=== PATIENT | male | born 1985 | race Caucasian/White ===

== ENCOUNTER → 2016-06-25 | Outpatient (CLI) | payer OTHER ==
[2016-06-25 10:35] LABS: CHOLESTEROL LEVEL 140 MG/DL (<200); TRIGLYCERIDES LEVEL 96 MG/DL (<150)
[2016-06-25 12:54] LABS: CONTROL LINE INT CTR LINE PRESENT; HIV SCRN NEGATIVE (NEGATIVE); HIV SCRN1 NEGATIVE (NEGATIVE)
== END ==
LOC: M LAB 08:57
DX: Z00.00 Encounter for general adult medical examination without abnormal findings (principal); Z11.4 Encounter for screening for human immunodeficiency virus [HIV]; F41.9 Anxiety disorder, unspecified

== ENCOUNTER → 2016-07-02 | Outpatient (CLI) | payer OTHER ==
--- NOTE | 2016-07-02 17:07 | REP ---
ORBITS, TWO VIEWS: HISTORY: Foreign body. The sinuses are clear. There is no fracture, bone lesion or radiopaque foreign body. IMPRESSION: Normal study. Signed by Ron Logan MD 07/03/2016 08:43 A
--- NOTE | 2016-07-03 09:24 | REP ---
MRI LEFT SHOULDER WITHOUT CONTRAST: 07/02/2016 CLINICAL HISTORY: Left shoulder pain, limited range of motion. No known injury. Recurrent subluxations for years. COMPARISON: X-ray 06/24/2016. TECHNIQUE: Sagittal fat suppressed T2, axial T2 MEDIC and fat suppressed T2 sequences with coronal T1 and fat suppressed T2 sequences provided. FINDINGS: Coronal images show the AC joint without hypertrophic changes. I do not see significant spurring from the acromion peripherally. The supraspinatus tendon shows some minor bursal surface fraying and tendinopathy but no full-thickness tear, retraction of the tendon nor atrophy of its muscle belly. No definite impingement suggested. There is no glenohumeral joint effusion evident. I see no loose body. There is abnormal signal in the posterior labrum and some paralabral cysts inferiorly adjacent posterior labrum. The anterior labrum and superior labrum are grossly intact. The subscapularis tendon shows some thickening and tendinopathy/tendinosis without a definite tear. No muscle atrophy. The infraspinatus and teres minor muscles and tendons are intact. The coracoclavicular and coracohumeral ligaments are intact. The spinal glenoid notch is unremarkable. Only trace amount of fluid in the subcoracoid bursa noted. The bony coracoid intact. IMPRESSION: 1. Posterior labral degeneration and suspected tear with paralabral cysts along the posterior inferior aspect of the labrum. 2. No glenohumeral joint effusion or other definite labral injury suggested although in the absence of a joint effusion the study would be less sensitive. Infraspinatus and teres minor tendons and muscles are intact. 3. Minor tendinopathy and peritendinitis of the supraspinatus with bursal surface fraying. No tear or retraction of the tendon. Biceps tendon is seated in its groove and unremarkable. Subscapularis with some tendinopathy tendinosis. No tear. 4. No bone bruise or fracture. Spinal glenoid notch without mass or fluid collection adjacent. Signed by Alden Berg MD 07/03/2016 05:48 P
--- NOTE | 2016-07-03 09:44 | REP ---
MRI LEFT FEMUR WITHOUT CONTRAST: 07/02/2016. Clinical history: Left lower extremity pain. Evaluate for hamstring injury. Technique: Coronal T1 and T2 STIR images of the thighs and smaller field of view, axial and coronal T1 and fat suppressed T2 STIR sequences of the left thigh were obtained. Comparison: X-ray femur and hip 03/10/2016. Findings: The bilateral femoral shafts and hips show no marrow signal abnormality. There is no joint effusion. The musculature of the buttocks, intrinsic pelvis and thigh muscles were symmetric in signal and size. I see no evidence of hematoma, mass or edema. There is no periosteal reaction or fluid collection. Subcutaneous fat without soft tissue mass or focal lesion. Hamstring insertions on the inferior pubic rami appear symmetric on both sides with some minor increased T2 signal in a symmetric fashion. Visualized tendons about the hip were unremarkable. There was no inguinal mass or hernia. No pathologic sized adenopathy. The bladder showed no wall thickening or mass. Visualized structures in the pelvis seen only in part were unremarkable. The neurovascular bundle of the thigh was unremarkable. Impression: 1. Some minor increased signal bilaterally in a symmetric fashion at hamstring insertions but no muscle tear, hematoma, edema or abnormal fluid collection evident. 2. No periosteal reaction, bone bruise, fracture or other marrow signal abnormality in the femoral shaft and hip. No subcutaneous mass. Signed by Alden Berg MD 07/03/2016 05:48 P
== END ==
LOC: M RAD 16:05
DX: M25.512 Pain in left shoulder (principal)

== ENCOUNTER 2016-07-30 20:54 | Emergency (ER) | payer OTHER ==
[~2016-07-30] VITALS: Ht 170.2 cm; Wt 64.4 kg
[2016-07-30] MEDS ORDERED: SERT1TAB16 (21:07)
[2016-07-30] MEDS ORDERED: TRAZ50TA4 (21:07)
[2016-07-31] MEDS ORDERED: CYCLOBENZAPRINE 10 MG TAB PO ONE
[2016-07-31] MEDS ORDERED: NORCO 5/325MG TABLET (BULK FOR ED) PO ONE
[2016-07-31] MEDS ORDERED: KETOROLAC 60 MG/2 ML VIAL (J1885) IM ONE
[2016-07-31] MEDS ORDERED: NAPR500T PO (00:03)
[2016-07-31] MEDS ORDERED: CYCL5TA PO (00:03)
[2016-07-31 00:48] VITALS: BP 116/65
== END 2016-07-31 00:50 | disposition home or self-care (01) ==
LOC: M ED 21:55
DX: S16.1XXA Strain of muscle, fascia and tendon at neck level, initial encounter (principal); X50.0XXA Overexertion from strenuous movement or load, initial encounter; Y92.39 Other specified sports and athletic area as the place of occurrence of the external cause; Y93.B3 Activity, free weights; Y99.8 Other external cause status; Z88.5 Allergy status to narcotic agent; Z79.899 Other long term (current) drug therapy

== ENCOUNTER → 2016-09-05 | Outpatient (CLI) | payer OTHER ==
[~2016-09-05] MED LIST: CYCL5TA PO; NAPR500T PO; SERT1TAB16; TRAZ50TA4
--- NOTE | 2016-09-05 19:12 | REP ---
MR LUMBAR SPINE WITHOUT CONTRAST: HISTORY: Back and leg pain. A rudimentary disc is present at the S1-2 level. Decreased signal intensity on T2-weighted images is present in the L5-S1 intervertebral discs. The disc is decreased in height. These findings are consistent with disc degeneration. There is no disc bulge or herniation at the L1-2 and L2-3 levels. The nerves exit the neural foramina without compression. A diffuse disc bulge is present at the L3-4 level. There is minimal compression of the thecal sac. The L3 nerves exit the neural foramina without compression. A diffuse disc bulge is present at the L4-5 level. There is minimal compression of the thecal sac. There is hypertrophy of the posterior articulating facets. The L4 nerves exit the neural foramina without compression. A diffuse disc bulge and small disc protrusion central and eccentric to the right are present at the L5-S1 level. There is minimal compression of the thecal sac and right S1 nerve as it exits the thecal sac. The left S1 nerve is normal. There is hypertrophy of the posterior articulating facets. The L5 nerves exit the neural foramina without compression. The conus medullaris is normal in appearance terminating at the level of the T12-L1 intervertebral disc . Normal signal intensity is present in the lumbar vertebral bodies. IMPRESSION: 1. Diffuse disc bulges at the L3-4 and L4-5 levels with minimal thecal sac compression. 2. Diffuse disc bulge and small disc protrusion at the L5-S1 level with minimal compression of the thecal sac and right S1 nerve as it exits the thecal sac. Signed by Ron Logan MD 09/05/2016 07:18 P
== END ==
LOC: M RAD 17:46
PROVIDERS: ATTEND Family Medicine
DX: M79.605 Pain in left leg (principal)

== ENCOUNTER → 2016-10-17 | Outpatient (CLI) | payer OTHER ==
[~2016-10-17] MED LIST changes: +CHIL100S45 PO; -CYCL5TA PO; +CYCL5TAB PO; +IBUP-1022 PO; +LIDO2SO SSP; +MAGICMW MT; +PENI250REC PO; +PRED20TA PO; -SERT1TAB16; +SERT25TA88; +TRAM50TA2 PO; +TRAZ50TA11; +TRAZ50TA11 PO; -TRAZ50TA4; +XANA0.5T PO
--- NOTE | 2016-11-06 00:32 | ECWPNPC ---
PATIENT NAME: POLY MUÑIZ : 1985 GENDER: MALE VISIT DATE: 10/17/2016 DISCHARGE DATE: 10/17/16 1202 VISIT LOCKED DATE TIME: PHYSICIAN: ASHLEY CHANCE RESOURCE: ASHLEY CHANCE REASON FOR APPOINTMENT 1. BACK/LEG HISTORY OF PRESENT ILLNESS FALL RISK SCREENIN31 Y/O MALE REFERRED BY DR. 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 SCREENING :NO FALLS IN THE PAST YEAR PAIN SCREENING: PATIENT HAS A COMPLAINT OF ACUTE OR CHRONIC PAIN :YES CURRENT MEDICATIONS TAKING IBUPROFEN 600 MG TABLET 1 TABLET ORALLY THREE TIMES A DAY TAKING XANAX 0.5 MG TABLET 1 TABLET ORALLY NEEDED FOR ANXIETY, PANIC ATTACKS TAKING TRAZODONE HCL 50 MG TABLET 1 TABLET AT BEDTIME NEEDED ORALLY ONCE A DAY NOT-TAKING CLONIDINE HCL 0.1 MG TABLET 1 TABLET AT BEDTIME ORALLY ONCE A DAY NOT-TAKING TIZANIDINE HCL 2 MG TABLET 1 TABLET NEEDED ORALLY BEFORE BEDTIME NOT-TAKING LYRICA 50 MG CAPSULE 1 CAPSULE ORALLY TAKE DAILY FOR FIRST WEEK, THEN INCREASE TO TWICE A DAY FOR SECOND WEEK THEN INCREASE TO 3 TIMES A DAY NOT-TAKING HYDROXYZINE HCL 25 MG TABLET 1 TABLET NEEDED ORALLY NEEDED NOT-TAKING CAPSAICIN 0.025 % CREAM 1 APPLICATION TO AFFECTED AREA EXTERNALLY THREE TIMES A DAY NOT-TAKING SERTRALINE HCL 25 MG TABLET 1 TABLET ORALLY ONCE A DAY NOT-TAKING DAILY VITAMIN - TABLET 1 TABLET ORALLY ONCE A DAY MEDICATION LIST REVIEWED AND RECONCILED WITH THE PATIENT PAST MEDICAL HISTORY ANXIETY PANIC ATTACKS ALLERGIES DILAUDID: HIVES: ALLERGY SURGICAL HISTORY APPENDECTOMY GI OBSTRUCTION FAMILY HISTORY FATHER: UNKNOWN MOTHER: ALIVE 50 YRS SIBLINGS: ALIVE DAUGHTER(S): ALIVE PATERNAL GRAND FATHER: UNKNOWN PATERNAL GRAND MOTHER: MATERNAL GRAND FATHER: UNKNOWN MATERNAL GRAND MOTHER: UNKNOWN 1 BROTHER(S) , 1 SISTER(S) - HEALTHY. 1DAUGHTER(S) - HEALTHY. SOCIAL HISTORY GENERAL: TOBACCO USE ARE YOU A:CURRENT SMOKER HOW MANY CIGARETTES A DAY DO YOU SMOKE?6-10 HOW SOON AFTER YOU WAKE UP DO YOU SMOKE YOUR FIRST CIGARETTE?6-30 MIN HOW OFTEN DO YOU SMOKE CIGARETTES?EVERY DAY PATIENT COUNSELED ON THE DANGERS OF TOBACCO USE AND URGED TO QUIT:09/08/2016 ARE YOU INTERESTED IN QUITTING?NOT READY TO QUIT COUNSELED THE PATIENT ON SMOKING EFFECTS, EDUCATION [id number]/05/2017 ALCOHOL SCREENING DID YOU HAVE A DRINK CONTAINING ALCOHOL IN THE PAST YEAR?NO POINTS0 INTERPRETATIONNEGATIVE RECREATIONAL DRUG USE DRUG USE?NO CAFFEINE CAFFEINE USE?YES SEXUAL HX HAD SEX IN THE LAST 12 MONTHS (VAGINAL, ORAL, OR ANAL)?YES WITHWOMEN ONLY HIV / HEP-C SCREENING HIV TEST OFFERED TO PATIENT:YES DATE OFFERED:06/24/2016 TEST ACCEPTED:YES 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 EXERCISE: NO REGULAR EXERCISE. MARITAL STATUS: SINGLE. OTHERS AT HOME: ROOMMATE. PETS: DOG. [place] NO PENTECOSTAL BELIEFS THAT WOULD IMPACT HEALTH CARE. LANGUAGE [place]. 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 LEARNING BARRIERS / SPECIAL NEEDS CHANGE FROM LAST VISIT?NO BARRIERS TO LEARNING?NO HEARING IMPAIRED?NO VISION IMPAIRED?YES READING :CORRECTIVE LENSES COGNITIVELY IMPAIRED?NO READINESS TO LEARN?YES LEARNING PREFERENCES?NO LEARNING CAPABILITIES PRESENT?YES EMOTIONAL BARRIERS?NO SPECIAL DEVICES?NO CUBE MACHINE TENDER NEEDED?NO ADVANCE DIRECTIVES HEALTH CARE PROXY?NO WOULD YOU LIKE MORE INFORMATION?NO DO YOU HAVE A DNR?NO WOULD YOU LIKE MORE INFORMATION?NO LIVING WILL?NO WOULD YOU LIKE MORE INFORMATION?NO POWER OF SUPERVISOR KEYMODULE ASSEMBLY?NO WOULD YOU LIKE MORE INFORMATION?NO HOSPITALIZATION/MAJOR DIAGNOSTIC PROCEDURE ABOVE SURGERIES REVIEW OF SYSTEMS REVIEWED BY: PROVIDER: ASHLEY STEWART . CONSTITUTIONAL: ANY CHANGE IN YOUR MEDICAL CONDITION? NO . CHILLS NO . FEVER NO . INFECTION: DO YOU HAVE NEW INFECTIONS? NO . DO YOU HAVE HISTORY OF MRSA? NO . MUSCULOSKELETAL: ANY NEW PATTERNS OF PAIN OR NUMBNESS? NO . SYTEMIC LUPUS NO . GASTROENTEROLOGY: ANY NEW CHANGE IN BOWEL CONTROL? NO . BARRETTS ESOPHAGUS NO . CIRRHOSIS NO . HEPATITIS NO . LIVER FAILURE NO . ACID REFLUX NO . UNEXPLAINED WEIGHT LOSS NO . GENITOURINARY: ANY NEW CHANGE IN BLADDER CONTROL? NO . IS THERE A CHANCE YOU COULD BE ? NO . HEMATOLOGY/LYMPH: DO YOU TAKE ANY BLOOD THINNERS? (FOR EXAMPLE- COUMADIN, PLAVIX, AGGRENOX, PLATEL, PRADAXA, OR XARELTO) NO . WHEN WAS YOUR LAST DOSE? DATE: TIME: . LOW PLATELET COUNT NO . SICKLE CELL DISEASE NO . VON WILLIEBRANDS NO . FACTOR V LEIDEN NO . THALLASEMIA NO . ANEMIA NO . EASY BRUISING NO . NEUROLOGY: HAVE YOU FALLEN IN THE PAST 6 MONTHS? NO . ANY NEW EXTREMITY NUMBNESS OR WEAKNESS? NO . HEAD INJURY NO . DEMENTIA NO . CEREBRAL PALSY NO . MULTIPLE SCLEROSIS NO . DIZZINESS NO . HEADACHE NO . STROKES NO . VERTIGO NO . CARDIOLOGY: DO YOU HAVE A PACEMAKER OR DEFIBRILLATOR? NO . ANGINA NO . HEART ATTACK NO . HEART SURGERY NO . CONGESTIVE HEART FAILURE/FLUID OVERLOAD NO . CHEST PAIN NO . HIGH BLOOD PRESSURE NO . IRREGULAR HEART BEAT NO . RESPIRATORY: HAVE YOU BEEN SICK IN THE PAST WEEK? NO . FEVER NO . FLU LIKE SYMPTOMS? NO . CPAP NO . BYPAP NO . ASTHMA NO . EMPHYSEMA NO . CHRONIC LUNG DISEASES NO . SHORTNESS OF BREATH ON EXERTION NO . COUGH NO . SNORING NO . INTEGUMENTARY: DO YOU HAVE ANY RASHES OR OPEN SORES? NO . ALLERGIC/IMMUNO: ARE YOU ALLERGIC TO SHELLFISH OR IV DYE? NO . ANY NEW ALLERGIES? NO . PSYCHIATRIC: DO YOU HAVE THOUGHTS OF HURTING YOURSELF OR SOMEONE ELSE? NO . ARE YOU ABUSED, NEGLECTED, OR IN AN UNSAFE ENVIRONMENT? NO . ENDOCRINOLOGY: ARE YOU DIABETIC? NO . THYROID DISORDER NO . OTHER: DO YOU NEED ANY PRESCRIPTIONS? NO . IF YES, PLEASE LIST: ____ . ANY NEW PROBLEMS WITH YOUR MEDICATIONS? NO . WHEN DID YOU LAST EAT? ____ . WHEN DID YOU LAST DRINK? ____ . WHAT DID YOU LAST DRINK? ____ . NAME OF PERSON DRIVING YOU HOME? ____ . DO YOU HAVE ANY OTHER QUESTIONS OR CONCERNS NO . VITAL SIGNS WT 142 LBS, HT 67 IN, BMI 22.24 INDEX, BP 130/65 MM HG, HR 83 /MIN, RR 16 /MIN, TEMP 98.5 F, OXYGEN SAT % 99, SAFE IN ENV? (Y/N) Y, REVIEWED BY: EM. EXAMINATION GENERAL EXAMINATION: GENERAL APPEARANCE:COOPERATIVE , COMFORTABLE. PSYCHAFFECT NORMAL. NECK:TRACHEA MIDLINE. NO CERVICAL OR SUPRACLAVICULAR LYMPHADENOPATHY NOTED. LUNGS:LUNG RIBERA ARE CLEAR TO AUSCULTATION BILATERALLY. GOOD MOVEMENT OF AIR. HEART:S1, S2 IN A REGULAR RATE AND RHYTHM. NO SIGNIFICANT MURMURS, RUBS OR GALLOPS NOTED. BACK:FULL RANGE OF MOTION OF THE LUMBAR SPINE.TENDER WITH PALPATION OF L/S SPINE AND PARASPINAL AREA.MUSCLE STRENGTH TESTING LOWER EXTREMITIES IS 5/5.NORMAL SENSATION TO LIGHT TOUCH BILAT. LOWER EXTREMITIES. DIAGNOSTIC-MRI L/S SPINE 03/2017-REVIEWED. ASSESSMENTS DISC DISPLACEMENT, LUMBAR - M51.26 (PRIMARY) LUMBAR RADICULOPATHY - M54.16 SACROILIAC JOINT PAIN - M53.3 TREATMENT DISC DISPLACEMENT, LUMBAR START TRAMADOL HCL TABLET, 50 MG, 1 TABLET NEEDED, ORALLY, Q8H PRN MDD3, 30 DAY(S), 30, REFILLS 0 NOTES: REQUEST L4/5 LESI. OTHERS NOTES: WHAT IS LUMBAR EPIDURAL INJECTION? MATERIAL WAS PRINTED, REVIEWED AND GIVEN TO PT. PROCEDURE CODES FA211 ESTABILISHED PATIENT [facility] CHARGE DISPOSITION & COMMUNICATION FOLLOW UP 2WK POST (REASON: REQUEST L4/5 LESI) ELECTRONICALLY SIGNED BY TERRY STEINER ON 11/05/2016 AT 12:13 PM EDT DISCLAIMER : THIS IS A VISIT SUMMARY EXTRACTED FROM THE [email or web address] CHART. IT IS NOT A COPY OF THE [email or web address] PROGRESS NOTE. NAOMI
== END ==
LOC: M PAIN 11:20
PROVIDERS: ATTEND Nurse Practitioner Family
DX: G89.29 Other chronic pain (principal); M51.26 Other intervertebral disc displacement, lumbar region; M54.16 Radiculopathy, lumbar region; M53.3 Sacrococcygeal disorders, not elsewhere classified; F41.0 Panic disorder [episodic paroxysmal anxiety]; F17.210 Nicotine dependence, cigarettes, uncomplicated; Z88.5 Allergy status to narcotic agent; Z79.1 Long term (current) use of non-steroidal anti-inflammatories (NSAID); Z79.899 Other long term (current) drug therapy

== ENCOUNTER 2016-11-21 09:26 | Emergency (ER) | payer OTHER ==
[~2016-11-21] VITALS: Ht 170.2 cm; Wt 60.4 kg
[2016-11-21 09:26] VITALS: BP 166/84
[~2016-11-21 09:26] MED LIST changes: -CHIL100S45 PO; -IBUP-1022 PO; -LIDO2SO SSP; -MAGICMW MT; -PENI250REC PO; -PRED20TA PO; -TRAM50TA2 PO; -TRAZ50TA11 PO; -XANA0.5T PO
[2016-11-21] MEDS ORDERED: XANA0.5T PO (09:41)
[2016-11-21] MEDS ORDERED: MAGIC MOUTHWASH SUSPENSION BTL SS ONE (10:15)
[2016-11-21] MEDS ORDERED: methylPREDNISolone INJ 125 MG/2 ML VIAL (J2930) IM ONE (10:15)
[2016-11-21] MEDS ORDERED: MAGICMW MT (10:17)
[2016-11-21] MEDS ORDERED: PRED20TA PO (10:17)
== END 2016-11-21 10:28 | disposition home or self-care (01) ==
LOC: M ED 09:26
DX: J02.9 Acute pharyngitis, unspecified (principal); F41.9 Anxiety disorder, unspecified; F17.200 Nicotine dependence, unspecified, uncomplicated; Z79.899 Other long term (current) drug therapy; Z88.8 Allergy status to other drugs, medicaments and biological substances
CPT/HCPCS: 87880; 96372; 99283; J2930

== ENCOUNTER 2016-11-23 10:07 | Emergency (ER) | payer OTHER ==
[~2016-11-23] VITALS: Ht 170.2 cm; Wt 60.0 kg
[2016-11-23 10:07] VITALS: BP 137/80
[~2016-11-23 10:07] MED LIST changes: +MAGICMW MT; +PRED20TA PO; +XANA0.5T PO
[2016-11-23] MEDS ORDERED: IBUPROFEN 100 MG/5 ML SUSP UDC DYE FREE PO ONE (11:00)
[2016-11-23] MEDS ORDERED: AUGMENTIN SUSP POWDER 250MG/5ML BTL 75ML PO ONE (11:00)
[2016-11-23] MEDS ORDERED: PENI250REC PO (11:01)
[2016-11-23] MEDS ORDERED: CHIL100S45 PO (11:01)
[2016-11-23] MEDS ORDERED: AMOXICILLIN SUSP 400 MG/5 ML ORAL SYRINGE *ED PO ONE (11:30)
== END 2016-11-23 11:27 | disposition home or self-care (01) ==
LOC: M ED 10:07
DX: J02.0 Streptococcal pharyngitis (principal); F41.9 Anxiety disorder, unspecified; R51 Headache; F17.200 Nicotine dependence, unspecified, uncomplicated; Z88.5 Allergy status to narcotic agent; Z79.899 Other long term (current) drug therapy; Z79.52 Long term (current) use of systemic steroids

== ENCOUNTER 2016-11-29 17:55 | Emergency (ER) | payer OTHER ==
[~2016-11-29] VITALS: Ht 170.2 cm; Wt 58.3 kg
[~2016-11-29 17:55] MED LIST changes: +CHIL100S45 PO; +PENI250REC PO
[2016-11-29] MEDS ORDERED: TRAM50TA2 PO (18:12)
[2016-11-29 18:39] LABS: BASO # 0.1 K/mm3 (0.0-0.2); BASO % 0.6 % (0.0-1.0); EOS # 0.2 K/mm3 (0.0-0.50); EOS % 0.8 % (0.0-3.0); LARGE UNSTAINED CELL # 0.3 K/mm3 (0.0-0.4); LARGE UNSTAINED CELL % 1.2 % (0.0-4.0); LYMPH # 4.4 K/mm3 (1.5-6.5); LYMPH % 20.2 % (24.0-44.0); MEAN CORPUSCULAR HEMOGLOBIN 30.9 pg (27.0-33.0); MEAN CORPUSCULAR HGB CONC 33.9 g/dl (32.0-36.5); MEAN CORPUSCULAR VOLUME 91.2 fl (80.0-96.0); MONO # 0.7 K/mm3 (0.0-0.8); MONO % 3.3 % (0.0-5.0); NEUTROPHILS # 15.1 K/mm3 (1.8-7.7); NEUTROPHILS % 73.9 % (36.0-66.0); PLATELET COUNT, AUTOMATED 294 k/mm3 (150-450); RED CELL DISTRIBUTION WIDTH 13.3 % (11.5-14.5); WHITE BLOOD COUNT 20.4 K/mm3 (4.0-10.0)
[2016-11-29] MEDS ORDERED: OXAZEPAM 10 MG CAP PO ONE (18:45)
[2016-11-29] MEDS ORDERED: MULTIVITAMIN -ADULT INJECTION 10 ML, THIAMINE INJection 100 MG, FOLIC ACID 1 MG in NS 1... IV ONE (18:45)
[2016-11-29 18:59] LABS: ALBUMIN 3.9 GM/DL (3.2-5.2); ALBUMIN/GLOBULIN RATIO 0.93 (1.00-1.93); ALKALINE PHOSPHATASE 89 U/L (45-117); ALT/SGPT 26 U/L (12-78); ANION GAP 13 MEQ/L (8-16); AST/SGOT 29 U/L (15-37); BILIRUBIN,DIRECT < 0.1 MG/DL (0.0-0.2); BILIRUBIN,TOTAL 0.2 MG/DL (0.2-1.0); BLOOD UREA NITROGEN 12 MG/DL (7-18); CALCIUM LEVEL 8.6 MG/DL (8.5-10.1); CARBON DIOXIDE LEVEL 28 MEQ/L (21-32); CHLORIDE LEVEL 105 MEQ/L (98-107); CREATININE FOR GFR 1.23 MG/DL (0.70-1.30); GLOMERULAR FILTRATION RATE > 60.0 (>60); GLUCOSE, FASTING 90 MG/DL (70-105); POTASSIUM SERUM 4.5 MEQ/L (3.5-5.1); SODIUM LEVEL 146 MEQ/L (136-145); TOTAL PROTEIN 8.1 GM/DL (6.4-8.2)
[2016-11-29] MEDS ORDERED: SODIUM CHLORIDE 0.9% 1000 ML IV ONE (19:00)
[2016-11-29 19:25] LABS: T UPTAKE 37 % (33-40); THYROXINE (T4) 10.2 UG/DL (4.5-12.0)
[2016-11-29 20:44] LABS: METHADONE URINE NEGATIVE (NEGATIVE)
[2016-11-29 20:59] VITALS: BP 114/67
[2016-11-29] MEDS ORDERED: ALPRAZolam 0.25 MG TAB PO ONE (22:00)
[2016-11-29] MEDS ORDERED: LORazepam 2 MG/ML VIAL (J2060) IV STA (22:34)
[2016-11-29 23:38] LABS: MEAN CORPUSCULAR HEMOGLOBIN 31.7 pg (27.0-33.0); MEAN CORPUSCULAR HGB CONC 34.6 g/dl (32.0-36.5); MEAN CORPUSCULAR VOLUME 91.7 fl (80.0-96.0); RED CELL DISTRIBUTION WIDTH 13.2 % (11.5-14.5)
[2016-11-29] MEDS ORDERED: ONDANSETRON 4MG/2ML VIAL (J2405) IV ONE (23:45)
[2016-11-30] MEDS ORDERED: MORPHINE 2 MG/ML 1ML SYRINGE IV ONE (00:15)
[2016-11-30] MEDS ORDERED: NS 1,000 ML IV ONE (00:15)
[2016-11-30] MEDS ORDERED: LIDO2SO SSP (00:49)
[2016-11-30] MEDS ORDERED: IBUP-1022 PO (00:49)
[2016-11-30] MEDS ORDERED: TRAZ50TA11 PO (00:49)
--- NOTE | 2016-11-30 00:50 | REPUSA ---
CT of the lumbar spine without contrast Clinical history: Pain. Fall. Technique: Multiple axial CT images were obtained through the lumbar spine without administration of contrast. Coronal and sagittal 3-D reconstructed images were also obtained. Findings: The lumbar vertebral bodies are in satisfactory positioning and alignment. No fractures or dislocatio ns are demonstrated. Intervertebral disc spaces are well-maintained. There is no evidence of facet jeffers bluxation. The neural foramen appear grossly patent. The spinal canal demonstrates normal caliber and contour without evidence of spinal stenosis. The surrounding soft tissues are within normal limits. Impression: Unremarkable CT examination of the lumbar spine.
--- NOTE | 2016-11-30 08:14 | REP ---
Chest one-view HISTORY: Pneumonia Comparison: 02/01/2014 The lungs are clear. The heart is normal in size. The pulmonary vasculature is normal in appearance. Impression: No acute disease. Signed by Ron Logan MD 11/30/2016 08:05 A
--- NOTE | 2016-11-30 08:40 | ECGEPIP ---
Stationary ECG Study [facility] - ED Test Date: 2016-11-29 Pat Name: POLY MUÑIZ Department: Room: - Gender: M System Configuration Specialist: : 1985 Requested By: JACKSON GANT Order Number: [id number] Reading MD: Brandy Lowry Measurements Intervals Gregory Rate: 131 P: 59 [place]: 152 QRS: 46 QRSD: 82 T: 52 QT: 285 QTc: 421 Interpretive Statements SINUS TACHYCARDIA ABNORMAL RHYTHM ECG NSTTW ABNORMALITY DELAYED R PROGRESSION INCREASED RATE 02/25/14 Electronically Signed On 11-30-2016 8:39:37 EDT by Brandy Lowry
== END 2016-11-30 01:34 | disposition left against medical advice (07) ==
LOC: M ED 17:55
DX: F10.230 Alcohol dependence with withdrawal, uncomplicated (principal); R00.0 Tachycardia, unspecified; M54.9 Dorsalgia, unspecified; F17.210 Nicotine dependence, cigarettes, uncomplicated; Z88.5 Allergy status to narcotic agent; Z79.899 Other long term (current) drug therapy
CPT/HCPCS: 36415; 71010; 72131; 80048; 80076; 80307; 80320; 81001; 82550; 83605; 83930; 84436; 84443; 84479; 85025; 85027; 85652; 86140; 87040; 87086; 93000; 93041; 94760; 96374; 96375; 99285; J2060; J2405; J3411

== ENCOUNTER → 2016-12-01 | Outpatient (REF) | payer OTHER ==
[~2016-12-01] MED LIST changes: +IBUP-1022 PO; +LIDO2SO SSP; +METH75TA; +TRAM50TA2 PO; +TRAZ50TA11 PO
[2016-12-03 13:39] LABS: HEPATITIS B SURFACE ANTIBODY NEGATIVE (POSITIVE)
== END ==
LOC: M SFHCPLAZ 14:39
PROVIDERS: ATTEND Family Medicine
DX: Z11.3 Encounter for screening for infections with a predominantly sexual mode of transmission (principal)

== ENCOUNTER → 2016-12-11 | Outpatient (CLI) | payer OTHER ==
[~2016-12-11] MED LIST changes: +ISOVUE-M 300 61% 15ML VIAL (Q9967) As Ordered ONE; +LIDOCAINE 1% SDV INJ 30 ML VIAL As Ordered ONE; +diazePAM 5 MG TAB As Ordered ONE; +diphenhydrAMINE 25 MG CAP As Ordered ONE; +methylPREDNISolone SUSP 40 MG/ML (DEPO-medrol) VIAL (J1030) As Ordered ONE; +oxyCODONE 5MG TAB As Ordered ONE
--- NOTE | 2016-12-11 13:47 | REP ---
Partial lumbar spine series: Face. . History: Injection procedure for pain. Eight seconds of fluoroscopy time is reported. Findings: A sequence of 3 fluoroscopically obtained last image hold procedural spot radiographs of the lumbar spine document needle position and contrast injection associated with injection procedure. Signed by Cortez Bal MD 12/11/2016 01:39 P
--- NOTE | 2016-12-12 00:23 | ECWPNPC ---
PATIENT NAME: POLY MUÑIZ : 1985 GENDER: MALE VISIT DATE: 12/11/2016 DISCHARGE DATE: 12/11/16 1318 VISIT LOCKED DATE TIME: PHYSICIAN: JOSIE JAMES RESOURCE: JOSIE JAMES REASON FOR APPOINTMENT 1. R L4/5 LESI HISTORY OF PRESENT ILLNESS HISTORY OF PRESENT ILLNESS: PAIN THE PATIENT DESCRIBES THE PAIN... FALL RISK SCREENING: SCREENING :NO FALLS IN THE PAST YEAR CURRENT MEDICATIONS TAKING TRAMADOL HCL 50 MG TABLET 1 TABLET NEEDED ORALLY Q8H PRN MDD3, NOTES: > 2 WEEKS AGO TAKING XANAX 0.5 MG TABLET 1 TABLET ORALLY DAILY NEEDED FOR ANXIETY, PANIC ATTACKS, NOTES: > 1 MONTH TAKING IBUPROFEN 600 MG TABLET 1 TABLET ORALLY THREE TIMES A DAY, NOTES: > 1 WEEK TAKING TRAZODONE HCL 50 MG TABLET 1 TABLET AT BEDTIME NEEDED ORALLY ONCE A DAY, NOTES: 12/08/16 MEDICATION LIST REVIEWED AND RECONCILED WITH THE PATIENT PAST MEDICAL HISTORY ANXIETY PANIC ATTACKS ALLERGIES DILAUDID: HIVES: ALLERGY SOCIAL HISTORY GENERAL: TOBACCO USE ARE YOU A:CURRENT SMOKER HOW MANY CIGARETTES A DAY DO YOU SMOKE?6-10 HOW SOON AFTER YOU WAKE UP DO YOU SMOKE YOUR FIRST CIGARETTE?6-30 MIN HOW OFTEN DO YOU SMOKE CIGARETTES?EVERY DAY PATIENT COUNSELED ON THE DANGERS OF TOBACCO USE AND URGED TO QUIT:12/11/2016 ARE YOU INTERESTED IN QUITTING?NOT READY TO QUIT COUNSELED THE PATIENT ON SMOKING EFFECTS, EDUCATION [id number]/07/2017 ALCOHOL SCREENING DID YOU HAVE A DRINK CONTAINING ALCOHOL IN THE PAST YEAR?NO POINTS0 INTERPRETATIONNEGATIVE RECREATIONAL DRUG USE DRUG USE?NO CAFFEINE CAFFEINE USE?YES SEXUAL HX HAD SEX IN THE LAST 12 MONTHS (VAGINAL, ORAL, OR ANAL)?YES WITHWOMEN ONLY HIV / HEP-C SCREENING HIV TEST OFFERED TO PATIENT:YES DATE OFFERED:06/24/2016 TEST ACCEPTED:YES 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 EXERCISE: NO REGULAR EXERCISE. MARITAL STATUS: SINGLE. OTHERS AT HOME: ROOMMATE. PETS: DOG. SAMARITAN NO SAMARITAN BELIEFS THAT WOULD IMPACT HEALTH CARE. LANGUAGE LATVIAN. 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 LEARNING BARRIERS / SPECIAL NEEDS CHANGE FROM LAST VISIT?YES BARRIERS TO LEARNING?NO HEARING IMPAIRED?NO VISION IMPAIRED?YES READING :CORRECTIVE LENSES COGNITIVELY IMPAIRED?NO READINESS TO LEARN?YES LEARNING PREFERENCES?NO LEARNING CAPABILITIES PRESENT?YES EMOTIONAL BARRIERS?NO SPECIAL DEVICES?NO STORM WINDOW INSTALLER NEEDED?NO PAIN CLINIC PFS, CLERGY, PUBLIC HEALTH REFERRALS HAS THE PATIENT BEEN EDUCATED REGARDING HIS/HER PLAN OF CARE?YES HAS THE PATIENT BEEN EDUCATED REGARDING PAIN, THE RISK FOR PAIN, THE IMPORTANCE OF EFFECTIVE PAIN MANAGEMENT, AND THE PAIN ASSESSMENT PROCESS?YES ADVANCE DIRECTIVES HEALTH CARE PROXY?NO WOULD YOU LIKE MORE INFORMATION?NO DO YOU HAVE A DNR?NO WOULD YOU LIKE MORE INFORMATION?NO LIVING WILL?NO WOULD YOU LIKE MORE INFORMATION?NO POWER OF MERCHANDISE CARRIER?NO WOULD YOU LIKE MORE INFORMATION?NO REVIEW OF SYSTEMS REVIEWED BY: PROVIDER: . CONSTITUTIONAL: ANY CHANGE IN YOUR MEDICAL CONDITION? NO . CHILLS NO . FEVER NO . INFECTION: DO YOU HAVE NEW INFECTIONS? NO . DO YOU HAVE HISTORY OF MRSA? NO . MUSCULOSKELETAL: ANY NEW PATTERNS OF PAIN OR NUMBNESS? NO . GASTROENTEROLOGY: ANY NEW CHANGE IN BOWEL CONTROL? NO . GENITOURINARY: ANY NEW CHANGE IN BLADDER CONTROL? NO . IS THERE A CHANCE YOU COULD BE ? NO . HEMATOLOGY/LYMPH: DO YOU TAKE ANY BLOOD THINNERS? (FOR EXAMPLE- COUMADIN, PLAVIX, AGGRENOX, PLATEL, PRADAXA, OR XARELTO) NO . WHEN WAS YOUR LAST DOSE? DATE: TIME: . NEUROLOGY: HAVE YOU FALLEN IN THE PAST 6 MONTHS? YES PT REPORTS HE WAS MOPPING HIS ROOM, AND SLIPPED AND FELL, STRIKING HIS LOWER BACK AGAINST A DESK. NO ED OR MD VISITS, REPORTS HE COULDN'T WALK FOR 2 DAYS AFTERWARDS.&NBSP;. ANY NEW EXTREMITY NUMBNESS OR WEAKNESS? &NBSP;&NBSP; NO&NBSP;. CARDIOLOGY: DO YOU HAVE A PACEMAKER OR DEFIBRILLATOR? NO . RESPIRATORY: HAVE YOU BEEN SICK IN THE PAST WEEK? NO . FEVER NO . FLU LIKE SYMPTOMS? NO . COUGH NO . INTEGUMENTARY: DO YOU HAVE ANY RASHES OR OPEN SORES? NO . ALLERGIC/IMMUNO: ARE YOU ALLERGIC TO SHELLFISH OR IV DYE? NO . ANY NEW ALLERGIES? NO . PSYCHIATRIC: DO YOU HAVE THOUGHTS OF HURTING YOURSELF OR SOMEONE ELSE? NO . ARE YOU ABUSED, NEGLECTED, OR IN AN UNSAFE ENVIRONMENT? NO . ENDOCRINOLOGY: ARE YOU DIABETIC? NO . OTHER: DO YOU NEED ANY PRESCRIPTIONS? YES . IF YES, PLEASE LIST: ____TRAMADOL . ANY NEW PROBLEMS WITH YOUR MEDICATIONS? NO . WHEN DID YOU LAST EAT? ____12/10/16 1400 . WHEN DID YOU LAST DRINK? ____12/11/16 0930 . WHAT DID YOU LAST DRINK? ____WATER . NAME OF PERSON DRIVING YOU HOME? ____SAMANTHA KELYL . DO YOU HAVE ANY OTHER QUESTIONS OR CONCERNS NO . VITAL SIGNS WT 132 LBS, HT 67 IN, BMI 20.67 INDEX, BP 110/65 MM HG, HR 115 /MIN, RR 16 /MIN, TEMP 98.1 F, OXYGEN SAT % 98%, NA INITIALS SC 10:51. ASSESSMENTS INTERVERTEBRAL DISC DISORDER WITH RADICULOPATHY OF LUMBAR REGION - M51.16 (PRIMARY) PROCEDURES PRE PROCEDURE DIAGNOSIS LUMBAR DISC DISORDER WITH RADICULOPATHY POST PROCEDURE DIAGNOSIS LUMBAR DISC DISORDER WITH RADICULOPATHY PROCEDURE LUMBAR EPIDURAL STEROID INJECTION UNDER FLUOROSCOPIC GUIDANCE SURGEON DR. JOSIE JAMES EXCHANGE ADMINISTRATOR NONE ANESTHESIA LOCAL PRE PROCEDURE NOTE THE PATIENT HAS A HISTORY OF CHRONIC LOW BACK PAIN. I EVALUATE THE PATIENT AND REVIEWED THE CHART. I WENT OVER THE RISKS, ALTERNATIVES, AND BENEFITS ASSOCIATED WITH THIS PROCEDURE. THE PATIENT WOULD LIKE TO PROCEED AND GIVE CONSENT TO PERFORMED THE PROCEDURE. THE PATIENT DENIES UNEXPLAINABLE WEIGHT LOSS, FEVER, CHILLS, OR NEW CHANGES IN URINARY OR BOWEL CONTROL. DESCRIPTION OF PROCEDURE THE PATIENT WAS BROUGHT TO THE PROCEDURE ROOM AND PLACED IN THE PRONE POSITION. THE LUMBOSACRAL AREA WAS CLEANED WITH BETADINE SOLUTION AND DRAPED ASEPTICALLY. THE PROCEDURE WAS DONE UNDER STERILE CONDITIONS. I CHECKED LATERALITY AND THE LEVEL WHERE THE PROCEDURE WAS GOING TO BE PERFORMED WITH THE PATIENT AND THE SUPPORTING STAFF AT THE MOMENT OF THE TIME OUT IN THE PROCEDURE ROOM. UNDER FLUOROSCOPIC GUIDANCE, THE TARGET POINT WAS SELECTED AT THE INTERLAMINAR LEVEL OF L4-L5. LIDOCAINE WAS USED TO NUMB THE SKIN AND THE SUBCUTANEOUS TISSUE BELOW IT. EPIDURAL TUOHY NEEDLE, 17-GAUGE, WAS ADVANCED UNDER FLUOROSCOPIC GUIDANCE AND FOLLOWING PATIENT FEEDBACK UNTIL THE EPIDURAL SPACE WAS REACHED, 7 CM DEEP INTO THE SKIN BY THE LOSS OF RESISTANCE TECHNIQUE. ISOVUE M DYE 30%, 0.25 ML, WAS INJECTED SHOWING ADEQUATE SPREAD OF THE DYE. THEN, A SOLUTION OF 3 ML OF NORMAL SALINE WITH DEPO-MEDROL 60 MG WAS INJECTED SLOWLY FOLLOWING PATIENT FEEDBACK. THERE WAS NO EVIDENCE OF BLOOD, PARESTHESIA OR CEREBROSPINAL FLUID DURING THE PROCEDURE. THE PATIENT WAS SENT TO THE RECOVERY ROOM. THE PATIENT WAS MOVING THE EXTREMITIES AND DOING WELL. THERE WAS NO COMPLICATION DURING THE PROCEDURE. FLUOROSCOPY TIME WAS 8 SECONDS. POST PROCEDURE NOTE THE PATIENT WILL BE SEEN IN A FOLLOW UP IN THE NEXT FEW WEEKS. INSTRUCTIONS WERE GIVEN, QUESTIONS WERE ANSWERED, AND THE PATIENT EXPRESSED UNDERSTANDING AND AGREES WITH THE PLAN. I, RADHA SANTACRUZ, DOCUMENTED THE ABOVE INFORMATION ACTING A SCRIBE FOR DR. JAMES. I HAVE REVIEWED THE ABOVE DOCUMENT, WRITTEN BY RADHA PUENTE AND I VERIFY THAT IT IS ACCURATE DIAGNOSTIC IMAGING [facility] FLUORO GUIDE SPINE INJECTION (PAIN)[id number] PROCEDURE CODES 50788 LUMBAR/SACRAL W/ IMAGING 6045F RADXPS IN END [id number] PXD DISPOSITION & COMMUNICATION FOLLOW UP 3 WEEKS ELECTRONICALLY SIGNED BY JOSIE JAMES MD ON 12/11/2016 AT 05:15 PM EDT DISCLAIMER : THIS IS A VISIT SUMMARY EXTRACTED FROM THE [employer] CHART. IT IS NOT A COPY OF THE [employer] PROGRESS NOTE. MTDD
== END ==
LOC: M PAIN 11:15
PROVIDERS: ATTEND Anesthesiology
DX: G89.29 Other chronic pain (principal); M51.16 Intervertebral disc disorders with radiculopathy, lumbar region; F17.210 Nicotine dependence, cigarettes, uncomplicated; F41.0 Panic disorder [episodic paroxysmal anxiety]; Z79.891 Long term (current) use of opiate analgesic; Z79.1 Long term (current) use of non-steroidal anti-inflammatories (NSAID); Z79.899 Other long term (current) drug therapy; Z88.8 Allergy status to other drugs, medicaments and biological substances
CPT/HCPCS: 62323; J1030; Q9967

== ENCOUNTER → 2017-01-02 | Outpatient (CLI) | payer OTHER ==
[~2017-01-02] MED LIST changes: -ISOVUE-M 300 61% 15ML VIAL (Q9967) As Ordered ONE; -LIDOCAINE 1% SDV INJ 30 ML VIAL As Ordered ONE; -diazePAM 5 MG TAB As Ordered ONE; -diphenhydrAMINE 25 MG CAP As Ordered ONE; -methylPREDNISolone SUSP 40 MG/ML (DEPO-medrol) VIAL (J1030) As Ordered ONE; -oxyCODONE 5MG TAB As Ordered ONE
--- NOTE | 2017-01-22 00:31 | ECWPNPC ---
PATIENT NAME: POLY MUÑIZ : 1985 GENDER: MALE VISIT DATE: 01/02/2017 DISCHARGE DATE: 01/02/17 1531 VISIT LOCKED DATE TIME: PHYSICIAN: ASHLEY CHANCE RESOURCE: ASHLEY CHANCE REASON FOR APPOINTMENT 1. POST PROC HISTORY OF PRESENT ILLNESS HISTORY OF PRESENT ILLNESS: HER FOR POST PROCEDURE F/U.HAD RIGHT L4/5 LESI ON 12-11-16.REPORTS TWO DAYS OF AGGREVATION THEN PAIN RETURNED TO BASELINE.REPORTS THAT TRAMADOL ONLY HELPING A SMALL AMOUNT AND IS ASKING FOR MEDICINE CHANGE.RATING PAIN VAS 5/10.DESCRIBES PAIN CONSTANT ACHE CENTRAL LOW BACK. PAIN THE PATIENT DESCRIBES THE PAIN... FALL RISK SCREENING: SCREENING :NO FALLS IN THE PAST YEAR CURRENT MEDICATIONS TAKING IBUPROFEN 600 MG TABLET 1 TABLET ORALLY THREE TIMES A DAY, NOTES: > 1 WEEK TAKING TRAZODONE HCL 50 MG TABLET 1 TABLET AT BEDTIME NEEDED ORALLY ONCE A DAY, NOTES: 12/08/16 TAKING XANAX 0.5 MG TABLET 1 TABLET ORALLY DAILY NEEDED FOR ANXIETY, PANIC ATTACKS, NOTES: > 1 MONTH TAKING TRAMADOL HCL 50 MG TABLET 1 TABLET NEEDED ORALLY Q8H PRN MDD3 MEDICATION LIST REVIEWED AND RECONCILED WITH THE PATIENT PAST MEDICAL HISTORY ANXIETY PANIC ATTACKS ALLERGIES DILAUDID: HIVES: ALLERGY REVIEW OF SYSTEMS REVIEWED BY: PROVIDER: ASHLEY CHANCE [facility] . CONSTITUTIONAL: ANY CHANGE IN YOUR MEDICAL CONDITION? NO . CHILLS NO . FEVER NO . INFECTION: DO YOU HAVE NEW INFECTIONS? NO . DO YOU HAVE HISTORY OF MRSA? NO . MUSCULOSKELETAL: ANY NEW PATTERNS OF PAIN OR NUMBNESS? NO . GASTROENTEROLOGY: ANY NEW CHANGE IN BOWEL CONTROL? NO . GENITOURINARY: ANY NEW CHANGE IN BLADDER CONTROL? NO . IS THERE A CHANCE YOU COULD BE ? NO . HEMATOLOGY/LYMPH: DO YOU TAKE ANY BLOOD THINNERS? (FOR EXAMPLE- COUMADIN, PLAVIX, AGGRENOX, PLATEL, PRADAXA, OR XARELTO) NO . WHEN WAS YOUR LAST DOSE? DATE: TIME: . NEUROLOGY: HAVE YOU FALLEN IN THE PAST 6 MONTHS? NO . ANY NEW EXTREMITY NUMBNESS OR WEAKNESS? NO . CARDIOLOGY: DO YOU HAVE A PACEMAKER OR DEFIBRILLATOR? NO . RESPIRATORY: HAVE YOU BEEN SICK IN THE PAST WEEK? NO . FEVER NO . FLU LIKE SYMPTOMS? NO . COUGH NO . INTEGUMENTARY: DO YOU HAVE ANY RASHES OR OPEN SORES? NO . ALLERGIC/IMMUNO: ARE YOU ALLERGIC TO SHELLFISH OR IV DYE? NO . ANY NEW ALLERGIES? NO . PSYCHIATRIC: DO YOU HAVE THOUGHTS OF HURTING YOURSELF OR SOMEONE ELSE? NO . ARE YOU ABUSED, NEGLECTED, OR IN AN UNSAFE ENVIRONMENT? NO . ENDOCRINOLOGY: ARE YOU DIABETIC? NO . OTHER: DO YOU NEED ANY PRESCRIPTIONS? NO . IF YES, PLEASE LIST: ____ . ANY NEW PROBLEMS WITH YOUR MEDICATIONS? NO . WHEN DID YOU LAST EAT? ____ . WHEN DID YOU LAST DRINK? ____ . WHAT DID YOU LAST DRINK? ____ . NAME OF PERSON DRIVING YOU HOME? ____ . DO YOU HAVE ANY OTHER QUESTIONS OR CONCERNS YES CURRENTLY ON TRAMADOL, HELPS A LITTLE BUT NOT MUCH HE WOULD LIKE, WONDERING IF HE COULD TRY SOMETHING ELSE. . VITAL SIGNS WT 130 LBS, HT 67 IN, BMI 20.36 INDEX, BP 123/66 MM HG, HR 81 /MIN, RR 18 /MIN, TEMP 98.4 F, OXYGEN SAT % 99%, SAFE IN ENV? (Y/N) YES, REVIEWED BY: ADIA. EXAMINATION GENERAL EXAMINATION: GENERAL APPEARANCE:COOPERATIVE , COMFORTABLE. PSYCHAFFECT NORMAL. NECK:TRACHEA MIDLINE. NO CERVICAL OR SUPRACLAVICULAR LYMPHADENOPATHY NOTED. LUNGS:LUNG RIBERA ARE CLEAR TO AUSCULTATION BILATERALLY. GOOD MOVEMENT OF AIR. HEART:S1, S2 IN A REGULAR RATE AND RHYTHM. NO SIGNIFICANT MURMURS, RUBS OR GALLOPS NOTED. BACK:FULL RANGE OF MOTION OF THE LUMBAR SPINE.TENDER WITH PALPATION OF L/S SPINE AND PARASPINAL AREA.MUSCLE STRENGTH TESTING LOWER EXTREMITIES IS 5/5.NORMAL SENSATION TO LIGHT TOUCH BILAT. LOWER EXTREMITIES.SPECIFIC POINT TENDERNESS BILATERAL SIJ. DIAGNOSTIC-MRI L/S SPINE 03/2017-REVIEWED. ASSESSMENTS DISC DISPLACEMENT, LUMBAR - M51.26 (PRIMARY) SACROILIAC JOINT PAIN - M53.3 TREATMENT DISC DISPLACEMENT, LUMBAR REFILL TRAMADOL HCL TABLET, 50 MG, 1 TABLET NEEDED, ORALLY, Q8H PRN MDD3, 15 DAYS, 45, REFILLS 0 START ROBAXIN-750 TABLET, 750 MG, 1 TABLET, ORALLY, ONCE PER DAY PRN, 30 DAY(S), 30, REFILLS 0 NOTES: BILAT SIJ. PROCEDURE CODES FA211 ESTABILISHED PATIENT [facility] CHARGE DISPOSITION & COMMUNICATION FOLLOW UP 2WK POST (REASON: BILAT SIJ) ELECTRONICALLY SIGNED BY TERRY STEINER ON 01/21/2017 AT 07:45 PM EDT DISCLAIMER : THIS IS A VISIT SUMMARY EXTRACTED FROM THE [employer] CHART. IT IS NOT A COPY OF THE [employer] PROGRESS NOTE. NAOMI
== END ==
LOC: M PAIN 14:45
PROVIDERS: ATTEND Nurse Practitioner Family
DX: G89.29 Other chronic pain (principal); M51.26 Other intervertebral disc displacement, lumbar region; M53.3 Sacrococcygeal disorders, not elsewhere classified; Z79.891 Long term (current) use of opiate analgesic; Z79.899 Other long term (current) drug therapy; F41.0 Panic disorder [episodic paroxysmal anxiety]; Z88.5 Allergy status to narcotic agent

== ENCOUNTER → 2017-01-27 | Outpatient (CLI) | payer OTHER ==
[~2017-01-27] MED LIST changes: +BUPIVACAINE HCL 0.25% 30 ML VIAL As Ordered ONE; +ISOVUE-M 300 61% 15ML VIAL (Q9967) As Ordered ONE; +LIDOCAINE 1% SDV INJ 30 ML VIAL As Ordered ONE; +TRIAMCINOLONE ACETONIDE SUSP 40 MG/ML VIAL (J3301) As Ordered ONE; +diazePAM 5 MG TAB As Ordered ONE; +oxyCODONE 5MG TAB As Ordered ONE
--- NOTE | 2017-01-27 14:07 | REP ---
BILATERAL SI JOINT SERIES: Four views. HISTORY: Injection procedure for pain. 17 seconds of fluoroscopy time is reported. FINDINGS: A sequence of four last image hold fluoroscopic spot radiographs of the SI joints document various needle positions and contrast injections associated with injection procedure. Signed by Cortez Bal MD 01/27/2017 05:44 P
--- NOTE | 2017-01-27 23:32 | ECWPNPC ---
PATIENT NAME: POLY MUÑIZ : 1985 GENDER: MALE VISIT DATE: 01/27/2017 DISCHARGE DATE: 01/27/17 1147 VISIT LOCKED DATE TIME: PHYSICIAN: JOSIE JAMES RESOURCE: JOSIE JAMES REASON FOR APPOINTMENT 1. BILAT LAMAR HISTORY OF PRESENT ILLNESS HISTORY OF PRESENT ILLNESS: PAIN THE PATIENT DESCRIBES THE PAIN... FALL RISK SCREENING: SCREENING :NO FALLS IN THE PAST YEAR CURRENT MEDICATIONS TAKING PAROXETINE HCL 10 MG TABLET 1 TABLET IN THE MORNING ORALLY ONCE A DAY, NOTES: FEW DAYS AGO TAKING TRAZODONE HCL 50 MG TABLET 1 TABLET AT BEDTIME NEEDED ORALLY ONCE A DAY, NOTES: 1 WEEK AGO TAKING XANAX 0.5 MG TABLET 1 TABLET ORALLY DAILY NEEDED FOR ANXIETY, PANIC ATTACKS, NOTES: 2 WEEKS AGO TAKING TRAMADOL HCL 50 MG TABLET 1 TABLET NEEDED ORALLY Q8H PRN MDD3, NOTES: 1 WEEK AGO TAKING ROBAXIN-750 750 MG TABLET 1 TABLET ORALLY ONCE PER DAY PRN, NOTES: FEW DAYS AGO MEDICATION LIST REVIEWED AND RECONCILED WITH THE PATIENT PAST MEDICAL HISTORY ANXIETY PANIC ATTACKS ALLERGIES DILAUDID: HIVES: ALLERGY SOCIAL HISTORY GENERAL: TOBACCO USE ARE YOU A:CURRENT SMOKER ARE YOU INTERESTED IN QUITTING?NOT READY TO QUIT COUNSELED THE PATIENT ON SMOKING EFFECTS, EDUCATION [id number]/24/2017 HOW MANY CIGARETTES A DAY DO YOU SMOKE?6-10 HOW SOON AFTER YOU WAKE UP DO YOU SMOKE YOUR FIRST CIGARETTE?6-30 MIN HOW OFTEN DO YOU SMOKE CIGARETTES?EVERY DAY PATIENT COUNSELED ON THE DANGERS OF TOBACCO USE AND URGED TO QUIT:01/27/2017 ALCOHOL SCREENING DID YOU HAVE A DRINK CONTAINING ALCOHOL IN THE PAST YEAR?NO POINTS0 INTERPRETATIONNEGATIVE RECREATIONAL DRUG USE DRUG USE?NO CAFFEINE CAFFEINE USE?YES HOW OFTEN AND HOW MUCH? 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 EXERCISE: NO REGULAR EXERCISE. MARITAL STATUS: SINGLE. OTHERS AT HOME: ROOMMATE. PETS: DOG. SHINTO NO ADVENTIST BELIEFS THAT WOULD IMPACT HEALTH CARE. LANGUAGE [place]. 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 LEARNING BARRIERS / SPECIAL NEEDS CHANGE FROM LAST VISIT?YES BARRIERS TO LEARNING?NO HEARING IMPAIRED?NO VISION IMPAIRED?YES READING :CORRECTIVE LENSES COGNITIVELY IMPAIRED?NO READINESS TO LEARN?YES LEARNING PREFERENCES?YES :DEMONSTRATION/VERBAL INSTRUCTION LEARNING CAPABILITIES PRESENT?YES EMOTIONAL BARRIERS?NO SPECIAL DEVICES?NO ACCORDION TUNER NEEDED?NO PAIN CLINIC PFS, CLERGY, PUBLIC HEALTH REFERRALS PFS REFERRAL NEEDED?NO CLERGY REFERRAL NEEDED?NO PUBLIC HEALTH REFERRAL NEEDED?NO HAS THE PATIENT BEEN EDUCATED REGARDING HIS/HER PLAN OF CARE?YES HAS THE PATIENT BEEN EDUCATED REGARDING PAIN, THE RISK FOR PAIN, THE IMPORTANCE OF EFFECTIVE PAIN MANAGEMENT, AND THE PAIN ASSESSMENT PROCESS?YES ADVANCE DIRECTIVES HEALTH CARE PROXY?NO WOULD YOU LIKE MORE INFORMATION?NO POWER OF BASEBALL UMPIRE FOR LITTLE LEAGUE?NO DO YOU HAVE A DNR?NO WOULD YOU LIKE MORE INFORMATION?NO LIVING WILL?NO WOULD YOU LIKE MORE INFORMATION?NO WOULD YOU LIKE MORE INFORMATION?NO DOMESTIC VIOLENCE DO YOU FEEL SAFE IN YOUR ENVIRONMENT?YES REVIEW OF SYSTEMS REVIEWED BY: PROVIDER: . CONSTITUTIONAL: ANY CHANGE IN YOUR MEDICAL CONDITION? NO . CHILLS NO . FEVER NO . INFECTION: DO YOU HAVE NEW INFECTIONS? NO . DO YOU HAVE HISTORY OF MRSA? NO . MUSCULOSKELETAL: ANY NEW PATTERNS OF PAIN OR NUMBNESS? NO . GASTROENTEROLOGY: ANY NEW CHANGE IN BOWEL CONTROL? NO . GENITOURINARY: ANY NEW CHANGE IN BLADDER CONTROL? NO . IS THERE A CHANCE YOU COULD BE ? NO . HEMATOLOGY/LYMPH: DO YOU TAKE ANY BLOOD THINNERS? (FOR EXAMPLE- COUMADIN, PLAVIX, AGGRENOX, PLATEL, PRADAXA, OR XARELTO) NO . WHEN WAS YOUR LAST DOSE? DATE: TIME: . NEUROLOGY: HAVE YOU FALLEN IN THE PAST 6 MONTHS? YES, IN DEC. HE SLIPPED IN HIS BEDROOM WHILE MOPPING HIS FLOOR. HURT HIS BACK AGAIN BUT WAS NEVER SEEN IN ER OR BY PCP . ANY NEW EXTREMITY NUMBNESS OR WEAKNESS? NO . CARDIOLOGY: DO YOU HAVE A PACEMAKER OR DEFIBRILLATOR? NO . RESPIRATORY: HAVE YOU BEEN SICK IN THE PAST WEEK? NO . FEVER NO . FLU LIKE SYMPTOMS? NO . COUGH NO . INTEGUMENTARY: DO YOU HAVE ANY RASHES OR OPEN SORES? NO . ALLERGIC/IMMUNO: ARE YOU ALLERGIC TO SHELLFISH OR IV DYE? NO . ANY NEW ALLERGIES? NO . PSYCHIATRIC: DO YOU HAVE THOUGHTS OF HURTING YOURSELF OR SOMEONE ELSE? NO . ARE YOU ABUSED, NEGLECTED, OR IN AN UNSAFE ENVIRONMENT? NO . ENDOCRINOLOGY: ARE YOU DIABETIC? NO . OTHER: DO YOU NEED ANY PRESCRIPTIONS? YES . IF YES, PLEASE LIST: A NEW MUSCLE RELAXER AND TRAMADOL--MESSAGE SENT TO Jaime STEWART. . ANY NEW PROBLEMS WITH YOUR MEDICATIONS? NO . WHEN DID YOU LAST EAT? 01/26 2100 . WHEN DID YOU LAST DRINK? 01/26 2130 . WHAT DID YOU LAST DRINK? GATORADE . NAME OF PERSON DRIVING YOU HOME? SAMANTHA KELLY . DO YOU HAVE ANY OTHER QUESTIONS OR CONCERNS NO . VITAL SIGNS WT 135 LBS, HT 67 IN, BMI 21.14 INDEX, BP 114/61 MM HG, HR 72 /MIN, RR 16 /MIN, TEMP 98.3 F, OXYGEN SAT % 99%, SAFE IN ENV? (Y/N) Y, NA INITIALS SC 10:25, REVIEWED BY: AVE. ASSESSMENTS SACROILIITIS, NOT ELSEWHERE CLASSIFIED - M46.1 (PRIMARY) PROCEDURES PN SI PRE PROCEDURE DIAGNOSIS SACROILIITIS, SACROILIAC JOINT DYSFUNCTION POST PROCEDURE DIAGNOSIS SACROILIITIS, SACROILIAC JOINT DYSFUNCTION PROCEDURE BILATERAL SACROILIAC JOINT BLOCK SURGEON DR. JOSIE JAMES PRICE LISTER NONE ANESTHESIA LOCAL PRE PROCEDURE NOTE PATIENT WITH HISTORY OF CHRONIC LOW BACK PAIN. I EVALUATED THE PATIENT AND REVIEWED THE CHART. I WENT OVER THE RISKS, ALTERNATIVES, AND BENEFITS ASSOCIATED WITH THIS PROCEDURE. THE PATIENT WOULD LIKE TO PROCEED AND GAVE CONSENT TO PERFORM THE PROCEDURE. THE PATIENT DENIES UNEXPLAINABLE WEIGHT LOSS, FEVER, CHILLS, OR NEW CHANGES IN URINARY OR BOWEL CONTROL DESCRIPTION OF PROCEDURE THE PATIENT WAS BROUGHT TO THE PROCEDURE ROOM AND PLACED IN THE PRONE POSITION. THE LUMBOSACRAL AREA WAS CLEANED WITH CHLORAPREP SOLUTION AND DRAPED ASEPTICALLY. THE PROCEDURE WAS DONE UNDER STERILE CONDITIONS. I CHECKED LATERALITY AND THE LEVEL WHERE THE PROCEDURE WAS GOING TO BE PERFORMED WITH THE PATIENT AND THE SUPPORTING STAFF AT THE MOMENT OF THE TIME OUT IN THE PROCEDURE ROOM. UNDER FLUOROSCOPIC GUIDANCE, TARGET POINT WAS SELECTED AT THE LOWER BORDER OF THE RIGHT AND LEFT SACROILIAC JOINT. TARGET POINT WAS SELECTED AFTER MEDIAL ROTATION AND TILT OF THE MAGNIFIER OF THE C-ARM. LIDOCAINE WAS USED TO NUMB THE SKIN AND SUBCUTANEOUS TISSUE BELOW IT. A SPINAL NEEDLE, 22-GAUGE, WAS ADVANCED UNDER FLUOROSCOPIC GUIDANCE AND FOLLOWING PATIENT FEEDBACK UNTIL THE TARGET AREA WAS TOUCHED. THE POSITION OF THE NEEDLE WAS VERIFIED WITH AP AND LATERAL VIEWS. AFTER PROPER POSITION OF THE NEEDLE WAS ACHIEVED, ISOVUE M DYE 30%, 0.25 ML, WAS INJECTED SHOWING SPREAD OF THE DYE. THEN, A SOLUTION OF 20 MG OF KENALOG WAS INJECTED IN RIGHT JOINT WITH 3 ML OF BUPIVACAINE 0.125%. THERE WAS NO EVIDENCE OF BLOOD, PARESTHESIA OR CEREBROSPINAL FLUID DURING THE PROCEDURE. THE PATIENT WAS SENT TO THE RECOVERY ROOM. THE PATIENT WAS MOVING THE EXTREMITIES AND DOING WELL. THERE WAS NO COMPLICATION DURING THE PROCEDURE. FLUOROSCOPY TIME WAS 17 SECONDS POST PROCEDURE NOTE THE PATIENT WILL BE SEEN IN A FOLLOW UP IN THE NEXT FEW WEEKS. INSTRUCTIONS WERE GIVEN, QUESTIONS WERE ANSWERED, AND THE PATIENT EXPRESSED UNDERSTANDING AND AGREED WITH THE PLAN. I, RADHA SANTACRUZ, DOCUMENTED THE ABOVE INFORMATION ACTING A SCRIBE FOR DR. JAMES. I HAVE REVIEWED THE ABOVE DOCUMENT, WRITTEN BY RADHA PUENTE AND I VERIFY THAT IT IS ACCURATE DIAGNOSTIC IMAGING [facility] FLUORO GUIDANCE (PAIN)[id number] PROCEDURE CODES 12246 INJECT SACROILIAC JOINT, MODIFIERS: 50 6045F RADXPS IN END [id number] PXD DISPOSITION & COMMUNICATION FOLLOW UP 3 WEEKS ELECTRONICALLY SIGNED BY JOSIE JAMES MD ON 01/27/2017 AT 05:46 PM EDT DISCLAIMER : THIS IS A VISIT SUMMARY EXTRACTED FROM THE [employer] CHART. IT IS NOT A COPY OF THE [employer] PROGRESS NOTE. MTDD
== END ==
LOC: M PAIN 10:30
PROVIDERS: ATTEND Anesthesiology
DX: G89.29 Other chronic pain (principal); M46.1 Sacroiliitis, not elsewhere classified; M53.88 Other specified dorsopathies, sacral and sacrococcygeal region; F41.0 Panic disorder [episodic paroxysmal anxiety]; F17.210 Nicotine dependence, cigarettes, uncomplicated; F10.99 Alcohol use, unspecified with unspecified alcohol-induced disorder; Z88.8 Allergy status to other drugs, medicaments and biological substances; Z79.891 Long term (current) use of opiate analgesic; Z79.899 Other long term (current) drug therapy
CPT/HCPCS: G0260; J3301; Q9967

== ENCOUNTER 2017-02-11 21:14 | Emergency (ER) | payer OTHER ==
[~2017-02-11] VITALS: Ht 177.8 cm; Wt 68.2 kg
[~2017-02-11 21:14] MED LIST changes: -BUPIVACAINE HCL 0.25% 30 ML VIAL As Ordered ONE; -ISOVUE-M 300 61% 15ML VIAL (Q9967) As Ordered ONE; -LIDOCAINE 1% SDV INJ 30 ML VIAL As Ordered ONE; -METH75TA; -TRIAMCINOLONE ACETONIDE SUSP 40 MG/ML VIAL (J3301) As Ordered ONE; -diazePAM 5 MG TAB As Ordered ONE; -oxyCODONE 5MG TAB As Ordered ONE
[2017-02-11 21:53] LABS: VENOUS BASE EXCESS -1.4 (-2.0-2.0); VENOUS O2 SATURATION 68.1 % (60.0-80.0); VENOUS PARTIAL PRESSURE CO2 60.5 mmHg (38.0-50.0); VENOUS PARTIAL PRESSURE O2 38.5 mmHg (30.0-50.0); VENOUS STANDARD HCO3 22.2 MEQ/L; VENOUS TOTAL CO2 29.6 MEQ/L (24.0-28.0)
[2017-02-11 21:59] LABS: MEAN CORPUSCULAR HEMOGLOBIN 31.7 pg (27.0-33.0); MEAN CORPUSCULAR HGB CONC 34.8 g/dl (32.0-36.5); MEAN CORPUSCULAR VOLUME 91.2 fl (80.0-96.0); PLATELET COUNT, AUTOMATED 275 10^3/uL (150-450); RED CELL DISTRIBUTION WIDTH 12.9 % (11.5-14.5); WHITE BLOOD COUNT 14.4 10^3/uL (4.0-10.0)
[2017-02-11] MEDS ORDERED: NS 1,000 ML IV ONE (22:00)
[2017-02-11 22:06] LABS: POSITIVE DIFF POS FLAG
[2017-02-11 22:07] LABS: ADD MANUAL DIFFER YES; DIFF SLIDE NUMBER 341
[2017-02-11 22:21] LABS: ALBUMIN 4.3 GM/DL (3.2-5.2); ALKALINE PHOSPHATASE 80 U/L (45-117); ALT/SGPT 33 U/L (12-78); ANION GAP 5 MEQ/L (8-16); AST/SGOT 33 U/L (7-37); BILIRUBIN,DIRECT 0.1 MG/DL (0.0-0.2); BILIRUBIN,TOTAL 0.4 MG/DL (0.2-1.0); BLOOD UREA NITROGEN 11 MG/DL (7-18); CALCIUM LEVEL 8.9 MG/DL (8.5-10.1); CARBON DIOXIDE LEVEL 32 MEQ/L (21-32); CHLORIDE LEVEL 105 MEQ/L (98-107); CREATININE FOR GFR 1.14 MG/DL (0.70-1.30); GLOMERULAR FILTRATION RATE > 60.0 (>60); GLUCOSE, FASTING 99 MG/DL (70-105); POTASSIUM SERUM 4.7 MEQ/L (3.5-5.1); SODIUM LEVEL 142 MEQ/L (136-145); TOTAL PROTEIN 8.6 GM/DL (6.4-8.2)
[2017-02-11] MEDS ORDERED: METH75TA (22:25)
[2017-02-11 22:44] LABS: METHADONE URINE NEGATIVE (NEGATIVE)
--- NOTE | 2017-02-11 23:20 | REPUSA ---
CT of the head Clinical history: altered mental status. Comparison: 02/01/2014. Technique: Multiple axial CT images were obtained through the head without administration of contrast . Findings: The ventricles and sulci are symmetric bilaterally. There is no evidence of acute hemorrhag e or infarct. There is no midline shift, mass effect, or extra-axial fluid collection. The osseous st ructures are unremarkable. The visualized paranasal sinuses and mastoid air cells are clear. Impression: Negative study.
[2017-02-11 23:39] LABS: ABG BASE EXCESS -1.8 (-2.0-2.0); ABG HCO3 24.7 MEQ/L (22.0-26.0); ABG PARTIAL PRESSURE CO2 47.7 mmHg (35.0-45.0); ABG STANDARD HCO3 22.9 MEQ/L (22.0-26.0); ABG TOTAL CO2 26.2 MEQ/L (22.0-29.0); ABG pH (ARTERIAL) 7.332 UNITS (7.350-7.450)
--- NOTE | 2017-02-12 00:48 | REP ---
Clinical: Altered mental status . Comparison: 11/30/2016 . Findings: The mediastinum and cardiac silhouette are stable and within normal limits for portable technique. The lung rivera are clear without acute consolidation, effusion, or pneumothorax. Skeletal structures are intact. Impression: No acute cardiopulmonary process appreciated. Signed by Beau Dietrich MD 02/12/2017 12:39 A
[2017-02-12] MEDS ORDERED: LORazepam 2 MG/ML VIAL (J2060) IV STA (01:59)
[2017-02-12] MEDS ORDERED: HALOPERIDOL 5 MG/ML VIAL (J1630) IM ONE (03:30)
[2017-02-12] MEDS ORDERED: LORazepam 2 MG/ML VIAL (J2060) IM ONE (03:30)
[2017-02-12] MEDS ORDERED: diphenhydrAMINE INJ 50MG/ML VIAL (J1200) IM ONE (03:30)
--- NOTE | 2017-02-12 07:58 | ECGEPIP ---
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
[2017-02-12 09:31] VITALS: BP 125/69
== END 2017-02-12 09:42 | disposition home or self-care (01) ==
LOC: EDBD 21:14 → M ED 21:14
DX: F10.929 Alcohol use, unspecified with intoxication, unspecified (principal); Z79.899 Other long term (current) drug therapy
CPT/HCPCS: 36600; 70450; 71010; 80048; 80076; 80307; 80320; 80329; 81001; 82550; 82553; 82803; 84443; 85025; 93000; 93041; 96372; 96374; 99285; J1200; J1630; J2060

== ENCOUNTER 2017-02-26 15:17 | Inpatient (IN) | payer OTHER ==
[~2017-02-26] VITALS: Ht 172.7 cm; Wt 64.7 kg
[~2017-02-26 15:17] MED LIST changes: +METH75TA
[2017-02-26 15:30] LABS: MEAN CORPUSCULAR HEMOGLOBIN 31.7 pg (27.0-33.0); MEAN CORPUSCULAR HGB CONC 34.7 g/dl (32.0-36.5); MEAN CORPUSCULAR VOLUME 91.5 fl (80.0-96.0); PLATELET COUNT, AUTOMATED 241 10^3/uL (150-450); RED CELL DISTRIBUTION WIDTH 13.1 % (11.5-14.5); WHITE BLOOD COUNT 15.6 10^3/uL (4.0-10.0)
[2017-02-26] MEDS ORDERED: NALOXONE INJ 2 MG/2 ML SYRINGE (J2310) IM ONE (15:30)
[2017-02-26] MEDS ORDERED: NALOXONE INJ 2 MG/2 ML SYRINGE (J2310) IV ONE (15:30)
[2017-02-26] MEDS ORDERED: NS 1,000 ML IV ONE (15:30)
[2017-02-26 15:35] LABS: VENOUS BASE EXCESS -2.7 (-2.0-2.0); VENOUS O2 SATURATION 98.3 % (60.0-80.0); VENOUS PARTIAL PRESSURE CO2 38.6 mmHg (38.0-50.0); VENOUS PARTIAL PRESSURE O2 134.4 mmHg (30.0-50.0); VENOUS STANDARD HCO3 22.2 MEQ/L; VENOUS TOTAL CO2 23.2 MEQ/L (24.0-28.0)
[2017-02-26 15:42] LABS: ADD MANUAL DIFFER YES; POSITIVE DIFF POS FLAG
[2017-02-26 15:43] LABS: DIFF SLIDE NUMBER 120
[2017-02-26 15:58] LABS: EOSINOPHILS 4 % (0-5)
[2017-02-26] MEDS ORDERED: PROPOFOL 1,000 MG in APPROPRIATE DILUENT 1 EA IV SCH (16:00)
[2017-02-26] MEDS ORDERED: SUCCINYLCHOLINE INJ 200 MG/10 ML VIAL (J0330) IV ONE (16:00)
[2017-02-26 16:04] LABS: METHADONE URINE NEGATIVE (NEGATIVE)
[2017-02-26 16:08] LABS: ALBUMIN 3.8 GM/DL (3.2-5.2); ALBUMIN/GLOBULIN RATIO 1.31 (1.00-1.93); ALKALINE PHOSPHATASE 69 U/L (45-117); ALT/SGPT 24 U/L (12-78); ANION GAP 9 MEQ/L (8-16); AST/SGOT 26 U/L (7-37); BILIRUBIN,DIRECT 0.1 MG/DL (0.0-0.2); BILIRUBIN,TOTAL 0.3 MG/DL (0.2-1.0); BLOOD UREA NITROGEN 10 MG/DL (7-18); CALCIUM LEVEL 8.8 MG/DL (8.5-10.1); CARBON DIOXIDE LEVEL 26 MEQ/L (21-32); CHLORIDE LEVEL 106 MEQ/L (98-107); GLOMERULAR FILTRATION RATE > 60.0 (>60); GLUCOSE, FASTING 71 MG/DL (70-105); POTASSIUM SERUM 3.6 MEQ/L (3.5-5.1); SODIUM LEVEL 141 MEQ/L (136-145); TOTAL PROTEIN 6.7 GM/DL (6.4-8.2)
--- NOTE | 2017-02-26 16:09 | REP ---
Clinical: Status post intubation. Comparison: 02/11/2017. Findings: Endotracheal tube approximately 1.8 cm above the chrissy. Mediastinum and cardiac silhouette normal. Trace right basilar atelectasis cannot be excluded. No focal consolidation, effusion, or pneumothorax. Skeletal structures intact. Impression: 1. Endotracheal tube 1.8 cm above the chrissy. 2. Cannot exclude trace right basilar atelectasis. Signed by Beau Dietrich MD 02/26/2017 04:01 P
[2017-02-26] MEDS ORDERED: ALBUTEROL SULFATE 2.5 MG/0.5 ML INH NEB SOLN NEB PRN (17:45)
[2017-02-26] MEDS ORDERED: BISACODYL 10 MG SUPP PR PRN (17:45)
[2017-02-26] MEDS ORDERED: MORPHINE 2 MG/ML 1ML SYRINGE IV PRN (17:45)
[2017-02-26] MEDS ORDERED: ONDANSETRON 4MG/2ML VIAL (J2405) IV PRN (17:45)
[2017-02-26] MEDS ORDERED: NS 1,000 ML IV SCH (18:00)
[2017-02-26 18:19] LABS: ABG BASE EXCESS -2.1 (-2.0-2.0); ABG HCO3 24.1 MEQ/L (22.0-26.0); ABG PARTIAL PRESSURE O2 117.2 mmHg (75.0-100.0); ABG STANDARD HCO3 22.8 MEQ/L (22.0-26.0); ABG TOTAL CO2 25.5 MEQ/L (22.0-29.0); ABG pH (ARTERIAL) 7.337 UNITS (7.350-7.450)
[2017-02-26] MEDS ORDERED: MULTIVITAMIN -ADULT INJECTION 10 ML, THIAMINE INJection 100 MG, FOLIC ACID 1 MG in NS 1... IV ONE (19:00)
[2017-02-26] MEDS: PROPOFOL 1,000 MG in APPROPRIATE DILUENT 1 EA IV SCH ×2 (19:37→23:41)
[2017-02-26 20:00] VITALS: BP 136/80
[2017-02-26] MEDS: IPRATROPIUM 0.5MG/ALBUTEROL 2.5MG INH SOL UD 3ML (DUONEB)(J7620) NEB SCH ×2 (20:00→23:31)
[2017-02-26] MEDS ORDERED: PANTOPRAZOLE 40MG INJ (PROTONIX) (C9113) IV SCH (21:00)
[2017-02-26] MEDS ORDERED: CHLORHEXIDINE ORAL RINSE 0.12%/15ML 120ML BOTTLE MT SCH (21:00)
[2017-02-26] MEDS: HEPARIN SOD (PORCINE) 5000 UNITS/ML VIAL SC SCH (21:31)
[2017-02-26 23:59] VITALS: BP 117/55
[2017-02-27] MEDS: MIDAZOLAM INJ 2 MG/2 ML VIAL (J2250) IV PRN ×6 (00:11→07:36)
[2017-02-27 01:00] VITALS: BP 106/54
[2017-02-27 02:00] VITALS: BP 109/53
[2017-02-27] MEDS: PROPOFOL 1,000 MG in APPROPRIATE DILUENT 1 EA IV SCH ×2 (02:59→06:16)
[2017-02-27 03:00] VITALS: BP 121/63
[2017-02-27] MEDS: IPRATROPIUM 0.5MG/ALBUTEROL 2.5MG INH SOL UD 3ML (DUONEB)(J7620) NEB SCH ×2 (03:26→07:21)
[2017-02-27 04:00] VITALS: BP 108/55
[2017-02-27 04:42] LABS: BASO % 0.3 % (0.0-1.0); EOS % 0.4 % (0.0-3.0); IMMATURE GRANULOCYTE % 0.5 % (0-0); LYMPH # 3.5 10^3/uL (1.5-6.5); LYMPH % 30.9 % (24.0-44.0); MEAN CORPUSCULAR HEMOGLOBIN 31.5 pg (27.0-33.0); MEAN CORPUSCULAR HGB CONC 34.7 g/dl (32.0-36.5); MEAN CORPUSCULAR VOLUME 90.8 fl (80.0-96.0); MONO # 0.8 10^3/uL (0.0-0.8); MONO % 7.1 % (0.0-5.0); NEUTROPHILS # 6.9 10^3/uL (1.8-7.7); NEUTROPHILS % 60.8 % (36.0-66.0); PLATELET COUNT, AUTOMATED 218 10^3/uL (150-450); RED CELL DISTRIBUTION WIDTH 13.3 % (11.5-14.5); WHITE BLOOD COUNT 11.4 10^3/uL (4.0-10.0)
[2017-02-27 04:55] LABS: ALBUMIN 3.2 GM/DL (3.2-5.2); ALBUMIN/GLOBULIN RATIO 1.14 (1.00-1.93); ALKALINE PHOSPHATASE 53 U/L (45-117); ALT/SGPT 21 U/L (12-78); ANION GAP 9 MEQ/L (8-16); AST/SGOT 23 U/L (7-37); BILIRUBIN,TOTAL 0.2 MG/DL (0.2-1.0); BLOOD UREA NITROGEN 6 MG/DL (7-18); CALCIUM LEVEL 7.4 MG/DL (8.5-10.1); CARBON DIOXIDE LEVEL 25 MEQ/L (21-32); CHLORIDE LEVEL 114 MEQ/L (98-107); CHOLESTEROL LEVEL 130 MG/DL (< 200); GLOMERULAR FILTRATION RATE > 60.0 (>60); GLUCOSE, FASTING 93 MG/DL (70-105); MAGNESIUM LEVEL 1.6 MG/DL (1.8-2.4); PHOSPHORUS LEVEL 3.6 MG/DL (2.5-4.9); POTASSIUM SERUM 3.9 MEQ/L (3.5-5.1); SODIUM LEVEL 148 MEQ/L (136-145); TRIGLYCERIDES LEVEL 221 MG/DL (<150)
--- NOTE | 2017-02-27 06:13 | ECGEPIP ---
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
[2017-02-27] MEDS: HEPARIN SOD (PORCINE) 5000 UNITS/ML VIAL SC SCH ×2 (06:16→14:00)
[2017-02-27] MEDS ORDERED: MAG SULF 1GM/100ML (MAG RUN) 1 GM in APPROPRIATE DILUENT 1 EA IV ONE (07:00)
[2017-02-27] MEDS ORDERED: D5W/0.45% SODIUM CHLORIDE 1,000 ML IV SCH (07:00)
[2017-02-27 08:00] VITALS: BP 116/81
--- NOTE | 2017-02-27 08:12 | REP ---
Clinical: Intubation . Comparison: 02/26/2017 . Findings: Endotracheal tube approximately 3.8 cm above the chrissy. Nasogastric tube courses below the left hemidiaphragm. The mediastinum and cardiac silhouette are stable and within normal limits for portable technique. The lung rivera suggest trace right basilar atelectasis. No effusion, or pneumothorax. Skeletal structures are intact. Impression: Lines and tubes in satisfactory position. Cannot exclude trace right basilar atelectasis. Signed by Beau Dietrich MD 02/27/2017 08:04 A
[2017-02-27] MEDS ORDERED: PANTOPRAZOLE 40MG INJ (PROTONIX) (C9113) IV SCH (09:00)
--- NOTE | 2017-02-27 11:59 | HPE ---
DATE OF ADMISSION: 02/26/2017 NOTE: I was asked to emergently evaluate Mr. Mejia for acute respiratory failure leading to intubation and mechanical ventilation. Mr. Mejia is a 31-year-old white male who was dropped off in the emergency room by his roommate after having consumed significant alcohol and reportedly opiates. His toxicology screen, showed an alcohol level of 0.37 and was positive for benzodiazepines, but did not show opiates. There are several opiates that will not show up on the toxicology screen. Interestingly, on his last emergency room visit for alcohol intoxication, he was positive for opiates. He apparently also had emesis at some point with presumed aspiration. He apparently was doing reasonably well, but then began to become more lethargic and desaturate and it was felt that he needed to be intubated to protect his airway. No other history is known. Since intubation, minimal secretions. His past history is notable for frequent emergency department visits for alcohol intoxication. Per the chart history, appendectomy and abdominal surgery for a bowel obstruction. ALLERGIES: 1. HYDROMORPHONE. I do not know what happens with this medication. MEDICATIONS ON ADMISSION: - Xanax 0.5 mg by mouth daily as needed - ibuprofen 600 mg by mouth three times a day as needed - lidocaine 15 mL solution 5 mL SSP twice a day - tramadol 50 mg by mouth every 8 hours as needed - trazodone 50 mg by mouth at bedtime as needed Social and family history and review of systems unobtainable secondary to intubation. PHYSICAL EXAMINATION: GENERAL: Mr. Mejia is lying in bed, synchronous with the ventilator. He has an occasional cough. He is moving all extremities. VITAL SIGNS: Temperature 98.7, pulse 130s, respiratory rate 14-16, blood pressure 133/81 with an MAP of 98. HEENT: Anicteric. Pupils 5 mm and sluggish. Nares patent bilaterally with significant amount of clear discharge. Oropharynx moist mucosa, ET tube and OG tube in place. NECK: Supple, without jugular venous distention (JVD), thyromegaly or masses. Trachea is midline. LYMPHS: Without cervical or supraclavicular lymphadenopathy. CHEST: Normal shape. LUNGS: Symmetric excursion, good air entry. Scattered rhonchi, crackles in the right upper region posteriorly, no wheezes. Normal I-to-E. No accessory muscles usage or retractions. CARDIOVASCULAR: Tachycardic, regular rhythm, normal S1 and S2. No murmur, rub or gallop appreciated. ABDOMEN: Diminished but present bowel sounds, soft, nondistended, no hepatosplenomegaly, or masses appreciated. EXTREMITIES: Warm and well perfused without clubbing, cyanosis or edema, palpable pedal pulses bilaterally. SKIN: Scattered tattoos. No obvious track giang. NEUROLOGIC: Intubated. Pupils as described above. Moves all extremities. LABORATORY DATA: CBC showed a hemoglobin of 17.1, hematocrit 49.3, platelet count 241,000, white blood cell count 15,600 with a differential of 54% neutrophils, 14% leukocytes, 5% monocytes, 4% eosinophils, as well as 23% atypical lymphocytes. Chemistries show a sodium of 141, potassium 3.6, chloride 106, bicarbonate 26, anion gap 9, BUN 5, creatinine 1.1, glucose 71, calcium 8.8, total bilirubin 0.3, direct bilirubin 0.1, AST 26, ALT 24, alkaline phosphatase 69, CK of 429, total protein 6.7, albumin 3.8, TSH 0.55. VBG I believe before intubation was 7.37/39/134 with a measured saturation of 98% and a base excess of -2.7. Urine toxicology screen shows salicylate 2.5, acetaminophen less than 2, alcohol 0.37 and the tox screen was positive for benzodiazepines. Urinalysis is clear, specific gravity of 1.012, pH 6, was otherwise negative. I reviewed his chest x-ray as well as report. X-ray showed a normal appearing cardiac silhouette and pulmonary vascular shadows. Normal appearing mediastinal region. No consolidated regions or infiltrates. ET tube in good position. IMPRESSION: 1. Acute respiratory failure leading to mechanical ventilation secondary to decreased mental status related to alcohol and ingestion of benzodiazepines. 2. Alcohol intoxication. 3. Benzodiazepine usage. RECOMMENDATIONS: 1. Will keep intubated overnight and hopefully will be extubatable in the morning. 2. At the present time, I do not have an indication for antibiotics, but he is at risk for an aspiration process. Would therefore have low tolerance for introducing antibiotics should he clinically change. 3. Thiamine, multivitamin and folate. 4. Will use propofol for sedation. 5. Will also allow as needed benzodiazepines for sedation. Critical care times 40 minutes, not including procedural time.
[2017-02-27 12:00] VITALS: BP 120/57
[2017-02-27] MEDS ORDERED: SUCCINYLCHOLINE 100 MG/5 ML SYRINGE (J0330) ONE (14:29)
--- NOTE | 2017-02-28 15:55 | DSES ---
DATE OF ADMISSION: 02/26/2017 DATE OF DISCHARGE: 02/27/2017 DISCHARGE DIAGNOSES: 1. Acute respiratory failure secondary to decreased mental status secondary to alcohol intoxication. 2. Alcohol intoxication. 3. Alcohol abuse. HOSPITAL COURSE: Mr. Mejia was brought to the emergency department by his roommate with a decreased level of consciousness and having emesis. He was assessed at that time and felt that he required intubation to protect his airway given his decreased mental status and ongoing emesis. His initial alcohol level was 0.367. This morning, he was assessed for extubation and was successfully extubated. His alcohol levels were followed and his last level was at 10:41 this morning at 0.058. Mr. Mejia could ambulate without difficulty. He voided times two. There was no medical reason to continue his hospital stay and he was discharged to home. Prior to discharge, I had offered to refer him for alcohol rehabilitation treatment and he declined. DISPOSITION: Home. MEDICATIONS: He is to continue his previous outpatient medications. No new medications started this admission. FOLLOWUP: 1. He is to followup with Dr. Calloway in the resident clinic within 1 week. 2. Recommend he seek treatment for his alcohol abuse.
--- NOTE | 2017-02-28 21:48 | CCN ---
DATE: 02/27/2017 Mr. Mejia remains critically ill with acute respiratory failure secondary to decreased mental status related to alcohol intoxication leading to mechanical ventilation. No hemodynamic events overnight. This morning on his sedation vacation, he was following commands and did not indicate any discomfort. PHYSICAL EXAMINATION: GENERAL: Mr. Mejia is lying in bed synchronous with the ventilator. VITAL SIGNS: Temperature 98.1, pulse 120s to 140s, respiratory rate 22, blood pressure 116/81 with a mean arterial pressure (MAP) of 93. SpO2 of 97% on room air. HEENT: Anicteric, nares patent bilaterally. Oropharynx endotracheal (ET) tube and orogastric (OG) tube in place. NECK: Supple, without jugular venous distention (JVD), thyromegaly or masses. Trachea is midline. LYMPHATIC: No cervical or supraclavicular lymphadenopathy. LUNGS: Symmetrical excursion. Good air entry. No wheeze, rhonchi or crackles on tidal excursion. The previously heard rhonchi and crackles have resolved. Normal I to E. No accessory muscle usage or retractions. CARDIOVASCULAR: Tachycardic, regular rhythm, normal S1, S2, no murmur, rub, or gallop appreciated. ABDOMEN: Positive bowel sounds. Soft, nondistended, nontender. No hepatosplenomegaly or masses appreciated. EXTREMITIES: Without clubbing, cyanosis or edema. Palpable pedal pulses bilaterally. LABORATORY DATA: CBC showed a hemoglobin of 15.7, hemoglobin 45.3, and platelet count 218,000. White blood cell count 11,400, with a differential of 61% neutrophils, 31% lymphocytes, 7% monocytes. Chemistry showed sodium 140, potassium 3.9, chloride 114, bicarbonate 25, anion gap nine, BUN six, creatinine 0.9, glucose 93, calcium 7.4, phosphorus 3.6, magnesium 1.6. Total bilirubin 0.2, AST 23, ALT 21, alkaline phosphatase 53, LDH 195, CK 462, total protein six, albumin 3.2. Alcohol level from 0414 was 0.204. Repeat level at 1041 was 0.058. I reviewed his chest x-ray as well as the report from earlier today. That x-ray showed a normal-appearing cardiac silhouette, pulmonary vascular shadows. Normal-appearing mediastinum region. Trace atelectasis at the right base. Endotracheal tube is in good position. Yesterday's intake and output are 1691 in, and 1710 out, making him negative 19. Thus far today, 1040 in and 1200 out, making him negative 160. IMPRESSION: 1. Acute respiratory failure secondary to decreased mental status related to alcohol ingestion. 2. Alcohol toxicity. 3. Alcoholism. RECOMMENDATIONS: 1. Will proceed with a weaning trial. We will place . We will change his normal saline to dextrose 5% (D5) in half normal saline, given his increased sodium and chloride. Addendum: Mr. Mejia had a weaning trial with pressor support of five and PEEP of five with an FiO2 of 0.3. On these settings, his rapid shallow breathing index was ranging from the 20s to low 40s. He was able to spontaneously increase his tidal volume to over 1400 on demand. It was felt that he could tolerate extubation. Following extubation, he has done well on room air. He denies any significant difficulties. I discussed with him his repeated episodes of alcohol toxicity. He has been in rehabilitation once, and is not interested in going back at this time, stating that his is in a good place as he is living with his significant other and [id number] daughter, as well as a room mate. I discussed with him that he had been in the emergency department on both 02/12 and 02/26 of this month with alcohol toxicity with levels that could be life threatening. He still does not express any desire to go to rehabilitation. At this point, I have no medical reason to keep him in the hospital, and he will be discharged to home. CRITICAL CARE TIME: 35 minutes, not including procedures.
== END 2017-02-27 15:52 | disposition home or self-care (01) | DRG 133 ==
LOC: M ED 15:17 → M ED INP 17:40 → M ICU 18:53
PROVIDERS: ADMIT Internal Medicine Pulmonary Disease; ATTEND Internal Medicine Pulmonary Disease
PROC: 0BH17EZ Insertion of Endotracheal Airway into Trachea, Via Natural or Artificial Opening (ICD-10-PCS; principal; 2017-02-26)
PROC: 5A1935Z Respiratory Ventilation, Less than 24 Consecutive Hours (ICD-10-PCS; 2017-02-26)
DX: J96.00 Acute respiratory failure, unspecified whether with hypoxia or hypercapnia (principal); F10.129 Alcohol abuse with intoxication, unspecified; Z79.891 Long term (current) use of opiate analgesic; Z79.899 Other long term (current) drug therapy; T51.0X1A Toxic effect of ethanol, accidental (unintentional), initial encounter; Y92.89 Other specified places as the place of occurrence of the external cause; Y99.9 Unspecified external cause status

== ENCOUNTER 2017-03-23 18:17 | Emergency (ER) | payer OTHER ==
[~2017-03-23] VITALS: Ht 170.2 cm; Wt 60.5 kg
[2017-03-23] MEDS ORDERED: NORCO, ANEXSIA 5/325MG TABLET (HYDROcodone/ACETAMINOPHEN) PO ONE (19:15)
[2017-03-23 19:54] VITALS: BP 140/73
[2017-03-23] MEDS ORDERED: NORCOTAB PO (19:58)
--- NOTE | 2017-03-23 20:09 | REP ---
Right hand series: Four views. History: Pain in the area of the first metacarpal phalangeal joint after a fall 5 weeks ago. Findings: Overall mineralization is normal. Bones, joints, and soft tissues are unremarkable. No thumb or other digital fracture is seen. Impression: Negative right hand radiographs. Signed by Cortez Bal MD 03/23/2017 09:45 P
== END 2017-03-23 20:15 | disposition home or self-care (01) ==
LOC: M ED 19:19
DX: M79.641 Pain in right hand (principal); W01.0XXA Fall on same level from slipping, tripping and stumbling without subsequent striking against object, initial encounter; Y92.009 Unspecified place in unspecified non-institutional (private) residence as the place of occurrence of the external cause; Y93.89 Activity, other specified; Y99.8 Other external cause status; F17.210 Nicotine dependence, cigarettes, uncomplicated; Z88.5 Allergy status to narcotic agent

== ENCOUNTER → 2017-04-20 | Outpatient (CLI) | payer OTHER | LOC: M PAIN 14:30 | DX: M53.3 Sacrococcygeal disorders, not elsewhere classified (principal); M51.26 Other intervertebral disc displacement, lumbar region; F41.9 Anxiety disorder, unspecified; F43.10 Post-traumatic stress disorder, unspecified; F10.10 Alcohol abuse, uncomplicated; F17.210 Nicotine dependence, cigarettes, uncomplicated; Z88.8 Allergy status to other drugs, medicaments and biological substances; Z79.899 Other long term (current) drug therapy | CPT/HCPCS: G0463 ==